=== PATIENT | female | born 1970 | race African-American/Black ===

== ENCOUNTER 2020-05-21 16:45 | Inpatient (IN) ==
[2020-05-21] MEDS ORDERED: SODIUM CHLORIDE 0.9% 1,000 ML IV STA (17:38)
[2020-05-21 18:09] LABS: Basophils # 0.1 10*3/uL (0.0-0.2); Basophils % 0.3 % (0.0-0.8); Eosinophils # 0.1 10*3/uL (0.0-0.87); Eosinophils % 0.5 % (0.00-10.9); Hematocrit 35.9 VOL% (35.7-47.0); Hemoglobin 11.2 GM/DL (12.0-16.0); Immature Granulocytes % 0.7 %; Immature Granulocytes Absolute 0.13 #; Lymphocytes # 1.7 10*3/uL (1.4-4.0); Lymphocytes % 9.6 % (21.3-54.2); Mean Corpuscular HGB Conc 31.2 GM/DL (32-36); Mean Corpuscular Volume 79.4 FL (87-102); Mean Platelet Volume 8.2 FL (9.6-12.0); Monocytes % 4.7 % (1.7-12.7); Neutrophils % 84.2 % (38.7-73.9); Platelet Count 545 T/CUMM (130-400); Red Blood Count 4.52 MC/CUMM (3.8-5.5); Red Cell Distribution Width 15.3 % (9.3-17.3); White Blood Count 17.7 T/CUMM (4-12)
[2020-05-21 18:37] LABS: Alanine Aminotransferase 19 U/L (13-56); Albumin 2.7 G/DL (3.4-5.0); Alkaline Phosphatase 92 U/L (45-117); Aspartate Amino Transferase 10 U/L (0-37); Bilirubin,Total < 0.39 MG/DL (0.2-1.0); Blood Urea Nitrogen 9 MG/DL (7-18); Calcium 9.3 MG/DL (8.5-10.1); Estimated Glom Filtration Rate 78 ML/MIN; Glucose 213 MG/DL (74-106); Osmolality,Calculated 272.2 MOS/KG (273-304); Total Protein 8.1 G/DL (6.4-8.3)
[2020-05-21] MEDS ORDERED: VANCOMYCIN INJ 1,000 MG in SODIUM CHLORIDE 0.9% 250 ML IV STA (19:16)
[2020-05-21] MEDS ORDERED: ACETAMINOPHEN 325 MG TABLET PO PRN (19:44)
[2020-05-21] MEDS ORDERED: ONDANSETRON 4 MG/2 ML VIAL IV PRN (19:44)
[2020-05-21] MEDS ORDERED: VANCOMYCIN 1,000 MG VIAL ONE (20:29)
[2020-05-21] MEDS: SODIUM CHLOR 0.9% KCL 40 MEQ 40 MEQ/1,000 ML BAG IV SCH (22:38)
[2020-05-21] MEDS: MORPHINE 4 MG/1 ML VIAL IV PRN (23:46)
[2020-05-22 06:06] LABS: Basophils % 0.3 % (0.0-0.8); Eosinophils # 0.2 10*3/uL (0.0-0.87); Eosinophils % 1.4 % (0.00-10.9); Hematocrit 30.3 VOL% (35.7-47.0); Immature Granulocytes % 0.6 %; Immature Granulocytes Absolute 0.07 #; Lymphocytes # 1.9 10*3/uL (1.4-4.0); Mean Corpuscular HGB Conc 31.7 GM/DL (32-36); Mean Corpuscular Volume 79.7 FL (87-102); Mean Platelet Volume 8.4 FL (9.6-12.0); Monocytes % 8.9 % (1.7-12.7); Neutrophils % 73.8 % (38.7-73.9); Platelet Count 441 T/CUMM (130-400); Red Cell Distribution Width 15.2 % (9.3-17.3)
[2020-05-22 06:10] LABS: Hemoglobin 9.6 GM/DL (12.0-16.0); White Blood Count 12.5 T/CUMM (4-12)
[2020-05-22 06:12] LABS: Calcium 8.3 MG/DL (8.5-10.1); Osmolality,Calculated 271.7 MOS/KG (273-304)
[2020-05-22] MEDS: MORPHINE 4 MG/1 ML VIAL IV PRN ×2 (07:13→18:03)
[2020-05-22] MEDS: DEXTROSE 5% NACL 0.45% 1,000 ML IV SCH (07:36)
[2020-05-22] MEDS: SODIUM CHLOR 0.9% KCL 40 MEQ 40 MEQ/1,000 ML BAG IV SCH ×2 (08:50→17:57)
[2020-05-22] MEDS: PANTOPRAZOLE 40 MG VIAL IV SCH (08:54)
[2020-05-22] MEDS: VANCOMYCIN INJ 1,000 MG in SODIUM CHLORIDE 0.9% 250 ML IV SCH ×2 (08:54→20:25)
[2020-05-22] MEDS ORDERED: CYCLOBENZAPRINE 10 MG TABLET PO PRN (10:51)
[2020-05-22] MEDS ORDERED: DEXTROSE 50% 25 GM/50 ML VIAL IV PRN (10:53)
[2020-05-22] MEDS ORDERED: GLUCAGON 1 MG VIAL IM PRN (10:53)
[2020-05-22] MEDS: INSULIN LISPRO 100 UNIT/ML SUBCUT SCH ×3 (12:10→20:10)
[2020-05-22] MEDS: CHLORHEXIDINE 4% SOLN 118 ML BOTTLE TOP SCH (12:11)
[2020-05-22] MEDS: traMADol 50 MG TABLET PO PRN ×2 (12:11→20:12)
[2020-05-22] MEDS: LOSARTAN 50 MG TABLET PO SCH (12:12)
[2020-05-22] MEDS: CHLORTHALIDONE 25 MG TABLET PO SCH (14:21)
[2020-05-22] MEDS: GABAPENTIN 100 MG CAPSULE PO SCH ×2 (14:21→20:14)
[2020-05-22] MEDS: GLIMEPIRIDE 4 MG TABLET PO SCH (17:21)
[2020-05-22] MEDS: METOPROLOL TARTRATE 25 MG TABLET PO SCH (20:14)
[2020-05-23] MEDS: SODIUM CHLOR 0.9% KCL 40 MEQ 40 MEQ/1,000 ML BAG IV SCH ×5 (01:24→23:36)
[2020-05-23] MEDS: LEVOTHYROXINE 150 MCG TABLET PO SCH (06:04)
[2020-05-23] MEDS: INSULIN LISPRO 100 UNIT/ML SUBCUT SCH ×4 (07:48→21:13)
[2020-05-23] MEDS: GLIMEPIRIDE 4 MG TABLET PO SCH ×2 (08:25→17:10)
[2020-05-23] MEDS: CHLORTHALIDONE 25 MG TABLET PO SCH (08:25)
[2020-05-23] MEDS: ROSUVASTATIN 10 MG TABLET PO SCH (08:25)
[2020-05-23] MEDS: LOSARTAN 50 MG TABLET PO SCH (08:26)
[2020-05-23] MEDS: PANTOPRAZOLE 40 MG VIAL IV SCH (08:26)
[2020-05-23] MEDS: GABAPENTIN 100 MG CAPSULE PO SCH ×3 (08:26→20:59)
[2020-05-23] MEDS: DULoxetine 30 MG CAPSULE PO SCH (08:26)
[2020-05-23] MEDS: METOPROLOL TARTRATE 25 MG TABLET PO SCH ×2 (08:26→20:59)
[2020-05-23] MEDS: POTASSIUM CHLORIDE 20 MEQ TABLET PO SCH (08:26)
[2020-05-23] MEDS: CHLORHEXIDINE 4% SOLN 118 ML BOTTLE TOP SCH (08:27)
[2020-05-23] MEDS: VANCOMYCIN INJ 1,000 MG in SODIUM CHLORIDE 0.9% 250 ML IV SCH ×2 (08:27→21:06)
[2020-05-23] MEDS: traMADol 50 MG TABLET PO PRN ×2 (08:55→21:11)
[2020-05-23] MEDS: MENTHOL/ZINC OXIDE OINT 71 GM JAR TOP SCH (20:58)
[2020-05-24] MEDS: SODIUM CHLOR 0.9% KCL 40 MEQ 40 MEQ/1,000 ML BAG IV SCH ×2 (01:04→10:24)
[2020-05-24] MEDS: MORPHINE 4 MG/1 ML VIAL IV PRN ×2 (01:53→22:54)
[2020-05-24] MEDS: traMADol 50 MG TABLET PO PRN ×2 (03:30→18:00)
[2020-05-24] MEDS: LEVOTHYROXINE 150 MCG TABLET PO SCH (06:09)
[2020-05-24] MEDS: INSULIN LISPRO 100 UNIT/ML SUBCUT SCH ×4 (07:19→21:15)
[2020-05-24] MEDS: VANCOMYCIN INJ 1,000 MG in SODIUM CHLORIDE 0.9% 250 ML IV SCH ×2 (08:31→20:32)
[2020-05-24] MEDS: ROSUVASTATIN 10 MG TABLET PO SCH (08:32)
[2020-05-24] MEDS: GLIMEPIRIDE 4 MG TABLET PO SCH ×2 (08:32→17:51)
[2020-05-24] MEDS: LOSARTAN 50 MG TABLET PO SCH (08:32)
[2020-05-24] MEDS: GABAPENTIN 100 MG CAPSULE PO SCH ×3 (08:32→20:32)
[2020-05-24] MEDS: CHLORTHALIDONE 25 MG TABLET PO SCH (08:32)
[2020-05-24] MEDS: POTASSIUM CHLORIDE 20 MEQ TABLET PO SCH (08:32)
[2020-05-24] MEDS: METOPROLOL TARTRATE 25 MG TABLET PO SCH ×2 (08:32→20:33)
[2020-05-24] MEDS: DULoxetine 30 MG CAPSULE PO SCH (08:33)
[2020-05-24] MEDS: MENTHOL/ZINC OXIDE OINT 71 GM JAR TOP SCH ×2 (08:33→20:59)
[2020-05-24] MEDS: PANTOPRAZOLE 40 MG VIAL IV SCH (08:33)
[2020-05-24] MEDS: CHLORHEXIDINE 4% SOLN 118 ML BOTTLE TOP SCH (08:34)
[2020-05-24] MEDS ORDERED: MIDAZOLAM 2 MG/2 ML VIAL ONE (14:50)
[2020-05-24] MEDS ORDERED: fentaNYL 100 MCG/2 ML VIAL ONE (14:50)
[2020-05-24] MEDS ORDERED: LIDOCAINE 2% 5 ML VIAL ONE (14:50)
[2020-05-24] MEDS ORDERED: PHENYLEPHRINE 1 MG/10 ML SYRINGE IV ONE ×2 (14:50→16:18)
[2020-05-24] MEDS ORDERED: propofoL 200 MG/20 ML VIAL IV ONE (14:50)
[2020-05-24] MEDS ORDERED: BUPIVACAINE MPF 0.25% 30 ML VIAL ONE (14:58)
[2020-05-24] MEDS ORDERED: LIDOCAINE 1% 20 ML VIAL ONE (14:59)
[2020-05-24] MEDS ORDERED: ACETAMINOPHEN 1,000 MG/100 ML VIAL IV ONE (15:36)
[2020-05-24] MEDS ORDERED: HYDROmorphone 2 MG/1 ML VIAL ONE (16:47)
[2020-05-24] MEDS ORDERED: ONDANSETRON 4 MG/2 ML VIAL IV PRN (16:47)
[2020-05-24] MEDS ORDERED: HYDROmorphone 2 MG/1 ML VIAL IV PRN (16:47)
[2020-05-24] MEDS: ENOXAPARIN 40 MG/0.4 ML SYRINGE SUBCUT SCH (17:52)
[2020-05-25] MEDS: SODIUM CHLOR 0.9% KCL 40 MEQ 40 MEQ/1,000 ML BAG IV SCH ×2 (00:22→08:56)
[2020-05-25] MEDS: LEVOTHYROXINE 150 MCG TABLET PO SCH (06:31)
[2020-05-25] MEDS: MORPHINE 4 MG/1 ML VIAL IV PRN ×2 (07:44→17:51)
[2020-05-25] MEDS: INSULIN LISPRO 100 UNIT/ML SUBCUT SCH ×4 (08:24→23:15)
[2020-05-25] MEDS: VANCOMYCIN INJ 1,000 MG in SODIUM CHLORIDE 0.9% 250 ML IV SCH ×2 (08:57→20:51)
[2020-05-25] MEDS: DULoxetine 30 MG CAPSULE PO SCH (08:58)
[2020-05-25] MEDS: ENOXAPARIN 40 MG/0.4 ML SYRINGE SUBCUT SCH (08:58)
[2020-05-25] MEDS: GABAPENTIN 100 MG CAPSULE PO SCH ×3 (08:58→20:50)
[2020-05-25] MEDS: PANTOPRAZOLE 40 MG VIAL IV SCH (08:58)
[2020-05-25] MEDS: POTASSIUM CHLORIDE 20 MEQ TABLET PO SCH (08:59)
[2020-05-25] MEDS: ROSUVASTATIN 10 MG TABLET PO SCH (08:59)
[2020-05-25] MEDS: METOPROLOL TARTRATE 25 MG TABLET PO SCH ×2 (08:59→20:51)
[2020-05-25] MEDS: CHLORTHALIDONE 25 MG TABLET PO SCH (08:59)
[2020-05-25] MEDS: GLIMEPIRIDE 4 MG TABLET PO SCH ×2 (08:59→17:51)
[2020-05-25] MEDS: LOSARTAN 50 MG TABLET PO SCH (08:59)
[2020-05-25] MEDS: CHLORHEXIDINE 4% SOLN 118 ML BOTTLE TOP SCH (09:00)
[2020-05-25] MEDS: MENTHOL/ZINC OXIDE OINT 71 GM JAR TOP SCH ×2 (09:00→20:52)
[2020-05-25] MEDS: traMADol 50 MG TABLET PO PRN ×2 (11:52→22:47)
[2020-05-26] MEDS: SODIUM CHLOR 0.9% KCL 40 MEQ 40 MEQ/1,000 ML BAG IV SCH ×2 (02:34→12:21)
[2020-05-26] MEDS: LEVOTHYROXINE 150 MCG TABLET PO SCH (06:25)
[2020-05-26] MEDS: LOSARTAN 50 MG TABLET PO SCH (08:22)
[2020-05-26] MEDS: DULoxetine 30 MG CAPSULE PO SCH (08:22)
[2020-05-26] MEDS: ROSUVASTATIN 10 MG TABLET PO SCH (08:22)
[2020-05-26] MEDS: METOPROLOL TARTRATE 25 MG TABLET PO SCH ×2 (08:23→20:03)
[2020-05-26] MEDS: GLIMEPIRIDE 4 MG TABLET PO SCH ×2 (08:23→16:33)
[2020-05-26] MEDS: POTASSIUM CHLORIDE 20 MEQ TABLET PO SCH (08:23)
[2020-05-26] MEDS: PANTOPRAZOLE 40 MG VIAL IV SCH (08:23)
[2020-05-26] MEDS: CHLORTHALIDONE 25 MG TABLET PO SCH (08:23)
[2020-05-26] MEDS: GABAPENTIN 100 MG CAPSULE PO SCH ×3 (08:23→20:03)
[2020-05-26] MEDS: ENOXAPARIN 40 MG/0.4 ML SYRINGE SUBCUT SCH (08:24)
[2020-05-26] MEDS: INSULIN LISPRO 100 UNIT/ML SUBCUT SCH ×4 (08:24→20:50)
[2020-05-26] MEDS: MORPHINE 4 MG/1 ML VIAL IV PRN ×3 (08:40→23:17)
[2020-05-26] MEDS: PIPERACILLIN/TAZOBACTAM 3,375 MG in SODIUM CHLORIDE 0.9% 100 ML IV SCH ×3 (10:11→23:40)
[2020-05-26] MEDS: MENTHOL/ZINC OXIDE OINT 71 GM JAR TOP SCH ×2 (10:11→20:04)
[2020-05-26] MEDS: CHLORHEXIDINE 4% SOLN 118 ML BOTTLE TOP SCH (10:11)
[2020-05-26] MEDS: VANCOMYCIN INJ 1,500 MG in SODIUM CHLORIDE 0.9% 500 ML IV SCH ×2 (12:07→20:04)
[2020-05-26] MEDS: traMADol 50 MG TABLET PO PRN (18:09)
[2020-05-27] MEDS: LEVOTHYROXINE 150 MCG TABLET PO SCH (05:46)
[2020-05-27] MEDS: ENOXAPARIN 40 MG/0.4 ML SYRINGE SUBCUT SCH (09:26)
[2020-05-27] MEDS: ROSUVASTATIN 10 MG TABLET PO SCH (09:27)
[2020-05-27] MEDS: DULoxetine 30 MG CAPSULE PO SCH (09:27)
[2020-05-27] MEDS: GABAPENTIN 100 MG CAPSULE PO SCH (09:27)
[2020-05-27] MEDS: GLIMEPIRIDE 4 MG TABLET PO SCH (09:28)
[2020-05-27] MEDS: POTASSIUM CHLORIDE 20 MEQ TABLET PO SCH (09:28)
[2020-05-27] MEDS: CHLORHEXIDINE 4% SOLN 118 ML BOTTLE TOP SCH (09:29)
[2020-05-27] MEDS: CHLORTHALIDONE 25 MG TABLET PO SCH (09:29)
[2020-05-27] MEDS: METOPROLOL TARTRATE 25 MG TABLET PO SCH (09:30)
[2020-05-27] MEDS: VANCOMYCIN INJ 1,500 MG in SODIUM CHLORIDE 0.9% 500 ML IV SCH (09:30)
[2020-05-27] MEDS: PANTOPRAZOLE 40 MG VIAL IV SCH (09:32)
[2020-05-27] MEDS ORDERED: CIPROFLOXACIN 500 MG TABLET PO SCH (11:00)
[2020-05-27] MEDS: MENTHOL/ZINC OXIDE OINT 71 GM JAR TOP SCH (12:10)
[2020-05-27] MEDS: INSULIN LISPRO 100 UNIT/ML SUBCUT SCH ×2 (12:10→12:32)
[2020-05-27] MEDS: LOSARTAN 50 MG TABLET PO SCH (12:11)
[2020-05-27 12:23] VITALS: BP 114/65
[2020-05-27] MEDS: PIPERACILLIN/TAZOBACTAM 3,375 MG in SODIUM CHLORIDE 0.9% 100 ML IV SCH (12:32)
[2020-05-27] MEDS ORDERED: CLINDAMYCIN 300 MG CAPSULE PO SCH (14:00)
[2020-05-29] MEDS ORDERED: ERGOCALCIFEROL 50,000 UNIT CAPSULE PO SCH (09:00)
== END 2020-05-27 12:31 | disposition home or self-care (01) | DRG 580 ==
LOC: N.EDINP 16:45 → N.ED 16:45 → N.5E 22:47
PROVIDERS: ADMIT Surgery; ATTEND Surgery

== ENCOUNTER 2020-06-15 07:33 | Inpatient (IN) ==
[2020-06-14 15:33] LABS: Basophils # 0.1 10*3/uL (0.0-0.2); Basophils % 0.8 % (0.0-0.8); Eosinophils # 0.5 10*3/uL (0.0-0.87); Eosinophils % 3.7 % (0.00-10.9); Hematocrit 34.3 VOL% (35.7-47.0); Hemoglobin 10.5 GM/DL (12.0-16.0); Immature Granulocytes % 0.5 %; Immature Granulocytes Absolute 0.07 #; Lymphocytes # 2.2 10*3/uL (1.4-4.0); Lymphocytes % 17.4 % (21.3-54.2); Mean Corpuscular HGB Conc 30.6 GM/DL (32-36); Mean Corpuscular Volume 78.3 FL (87-102); Mean Platelet Volume 8.4 FL (9.6-12.0); Monocytes % 7.4 % (1.7-12.7); Neutrophils % 70.2 % (38.7-73.9); Platelet Count 551 T/CUMM (130-400); Red Blood Count 4.38 MC/CUMM (3.8-5.5); Red Cell Distribution Width 15.6 % (9.3-17.3); White Blood Count 12.8 T/CUMM (4-12)
[2020-06-14 15:51] LABS: Calcium 9.4 MG/DL (8.5-10.1); Osmolality,Calculated 277.4 MOS/KG (273-304)
[~2020-06-15 07:33] MED LIST: AMPICILLIN/SULBACTAM 3,000 MG in SODIUM CHLORIDE 0.9% 100 ML IV ONE; BUPIVACAINE MPF 0.25% 30 ML VIAL ONE; LIDOCAINE MPF 1% /EPI 30 ML VIAL ONE
[2020-06-15] MEDS ORDERED: LACTATED RINGERS 1,000 ML IV SCH (09:00)
[2020-06-15] MEDS ORDERED: fentaNYL 100 MCG/2 ML VIAL ONE (09:19)
[2020-06-15] MEDS ORDERED: propofoL 200 MG/20 ML VIAL IV ONE (09:19)
[2020-06-15] MEDS ORDERED: MIDAZOLAM 2 MG/2 ML VIAL ONE (09:19)
[2020-06-15] MEDS ORDERED: ONDANSETRON 4 MG/2 ML VIAL ONE (09:19)
[2020-06-15] MEDS ORDERED: LIDOCAINE 2% 5 ML VIAL ONE (09:19)
[2020-06-15] MEDS ORDERED: SEVOFLURANE 1 UNIT/15 MINUTE INH ONE (09:49)
[2020-06-15] MEDS ORDERED: PHENYLEPHRINE 1 MG/10 ML SYRINGE IV ONE (09:49)
[2020-06-15] MEDS ORDERED: MEPERIDINE 25 MG/1 ML VIAL IV PRN (10:09)
[2020-06-15] MEDS ORDERED: BISACODYL 5 MG TABLET PO PRN (10:09)
[2020-06-15] MEDS ORDERED: DEXTROSE 50% 25 GM/50 ML VIAL IV PRN (10:09)
[2020-06-15] MEDS ORDERED: ACETAMINOPHEN 325 MG TABLET PO PRN (10:09)
[2020-06-15] MEDS ORDERED: ALBUTEROL/IPRATROPIUM 3 ML NEB RESP TX PRN (10:09)
[2020-06-15] MEDS ORDERED: ONDANSETRON 4 MG/2 ML VIAL IV PRN ×2 (10:09)
[2020-06-15] MEDS ORDERED: GLUCAGON 1 MG VIAL IM PRN (10:09)
[2020-06-15] MEDS ORDERED: HYDROmorphone 2 MG/1 ML VIAL ONE (10:10)
[2020-06-15] MEDS: HYDROmorphone 2 MG/1 ML VIAL IV PRN ×5 (10:10→23:07)
[2020-06-15] MEDS ORDERED: CYCLOBENZAPRINE 10 MG TABLET PO PRN (10:15)
[2020-06-15] MEDS ORDERED: traMADol 50 MG TABLET PO PRN (10:15)
[2020-06-15] MEDS: INSULIN LISPRO 100 UNIT/ML SUBCUT SCH ×3 (13:03→21:31)
[2020-06-15] MEDS: LACTATED RINGERS 1,000 ML IV SCH ×2 (13:21→23:02)
[2020-06-15] MEDS: cefTRIAXone 1,000 MG in SYRINGE 1 EACH IV SCH (14:08)
[2020-06-15] MEDS: GLIMEPIRIDE 4 MG TABLET PO SCH (16:41)
[2020-06-15] MEDS: VANCOMYCIN INJ 1,250 MG in SODIUM CHLORIDE 0.9% 250 ML IV SCH (16:49)
[2020-06-15] MEDS: METOPROLOL TARTRATE 25 MG TABLET PO SCH (21:26)
[2020-06-16] MEDS: VANCOMYCIN INJ 1,250 MG in SODIUM CHLORIDE 0.9% 250 ML IV SCH ×2 (04:55→16:03)
[2020-06-16] MEDS: HYDROmorphone 2 MG/1 ML VIAL IV PRN ×4 (04:57→17:39)
[2020-06-16] MEDS: LEVOTHYROXINE 150 MCG TABLET PO SCH (05:50)
[2020-06-16 06:44] LABS: Basophils % 0.3 % (0.0-0.8); Eosinophils # 0.5 10*3/uL (0.0-0.87); Eosinophils % 4.4 % (0.00-10.9); Hematocrit 32.4 VOL% (35.7-47.0); Hemoglobin 10.1 GM/DL (12.0-16.0); Immature Granulocytes % 0.5 %; Immature Granulocytes Absolute 0.05 #; Lymphocytes # 1.4 10*3/uL (1.4-4.0); Lymphocytes % 13.1 % (21.3-54.2); Mean Corpuscular HGB Conc 31.2 GM/DL (32-36); Mean Corpuscular Volume 78.8 FL (87-102); Mean Platelet Volume 8.3 FL (9.6-12.0); Monocytes % 5.4 % (1.7-12.7); Neutrophils % 76.3 % (38.7-73.9); Platelet Count 435 T/CUMM (130-400); Red Blood Count 4.11 MC/CUMM (3.8-5.5); Red Cell Distribution Width 15.5 % (9.3-17.3); White Blood Count 10.3 T/CUMM (4-12)
[2020-06-16 06:57] LABS: Calcium 8.7 MG/DL (8.5-10.1); Osmolality,Calculated 272.7 MOS/KG (273-304)
[2020-06-16] MEDS: INSULIN LISPRO 100 UNIT/ML SUBCUT SCH ×4 (07:36→21:51)
[2020-06-16] MEDS ORDERED: PANTOPRAZOLE 40 MG TABLET PO SCH (09:00)
[2020-06-16] MEDS: ROSUVASTATIN 10 MG TABLET PO SCH (09:01)
[2020-06-16] MEDS: GABAPENTIN 100 MG CAPSULE PO SCH (09:01)
[2020-06-16] MEDS: DULoxetine 30 MG CAPSULE PO SCH (09:01)
[2020-06-16] MEDS: CHLORTHALIDONE 25 MG TABLET PO SCH (09:01)
[2020-06-16] MEDS: LOSARTAN 50 MG TABLET PO SCH (09:01)
[2020-06-16] MEDS: cefTRIAXone 1,000 MG in SYRINGE 1 EACH IV SCH (09:02)
[2020-06-16] MEDS: ENOXAPARIN 40 MG/0.4 ML SYRINGE SUBCUT SCH (09:02)
[2020-06-16] MEDS: LACTATED RINGERS 1,000 ML IV SCH ×3 (09:02→23:32)
[2020-06-16] MEDS: METOPROLOL TARTRATE 25 MG TABLET PO SCH ×2 (09:02→21:51)
[2020-06-16] MEDS: GLIMEPIRIDE 4 MG TABLET PO SCH ×2 (09:02→16:03)
[2020-06-16] MEDS: JARDIANCE PO SCH (09:03)
[2020-06-16] MEDS ORDERED: SODIUM HYPOCHLORITE 0.25% IRRIG 473 ML BOTTLE ONE (09:53)
[2020-06-16] MEDS: SODIUM HYPOCHLORITE 0.25% IRRIG 473 ML BOTTLE TOP SCH (10:18)
[2020-06-16] MEDS: POTASSIUM CHLORIDE 20 MEQ TABLET PO PRN ×2 (21:51→23:32)
[2020-06-17] MEDS: VANCOMYCIN INJ 1,250 MG in SODIUM CHLORIDE 0.9% 250 ML IV SCH ×2 (02:09→15:29)
[2020-06-17] MEDS: POTASSIUM CHLORIDE 20 MEQ TABLET PO PRN (02:09)
[2020-06-17] MEDS: HYDROmorphone 2 MG/1 ML VIAL IV PRN ×4 (02:16→23:37)
[2020-06-17] MEDS: LEVOTHYROXINE 150 MCG TABLET PO SCH (06:21)
[2020-06-17] MEDS: LACTATED RINGERS 1,000 ML IV SCH ×2 (09:25→15:31)
[2020-06-17] MEDS: INSULIN LISPRO 100 UNIT/ML SUBCUT SCH ×4 (09:27→21:19)
[2020-06-17] MEDS: JARDIANCE PO SCH (09:27)
[2020-06-17] MEDS: ENOXAPARIN 40 MG/0.4 ML SYRINGE SUBCUT SCH (09:34)
[2020-06-17] MEDS: GLIMEPIRIDE 4 MG TABLET PO SCH ×2 (09:34→17:37)
[2020-06-17] MEDS: ROSUVASTATIN 10 MG TABLET PO SCH (09:34)
[2020-06-17] MEDS: DULoxetine 30 MG CAPSULE PO SCH (09:34)
[2020-06-17] MEDS: cefTRIAXone 1,000 MG in SYRINGE 1 EACH IV SCH (09:34)
[2020-06-17] MEDS: CHLORTHALIDONE 25 MG TABLET PO SCH (09:35)
[2020-06-17] MEDS: SODIUM HYPOCHLORITE 0.25% IRRIG 473 ML BOTTLE TOP SCH (09:35)
[2020-06-17] MEDS: LOSARTAN 50 MG TABLET PO SCH (09:35)
[2020-06-17] MEDS: GABAPENTIN 100 MG CAPSULE PO SCH (09:35)
[2020-06-17] MEDS: METOPROLOL TARTRATE 25 MG TABLET PO SCH ×2 (09:35→21:09)
[2020-06-18] MEDS: LACTATED RINGERS 1,000 ML IV SCH ×3 (01:45→18:05)
[2020-06-18] MEDS: LEVOTHYROXINE 150 MCG TABLET PO SCH (05:39)
[2020-06-18 06:41] LABS: Basophils # 0.1 10*3/uL (0.0-0.2); Basophils % 0.9 % (0.0-0.8); Eosinophils # 0.6 10*3/uL (0.0-0.87); Hematocrit 31.3 VOL% (35.7-47.0); Hemoglobin 9.4 GM/DL (12.0-16.0); Immature Granulocytes % 0.5 %; Immature Granulocytes Absolute 0.04 #; Lymphocytes % 25.1 % (21.3-54.2); Mean Corpuscular Volume 79.8 FL (87-102); Mean Platelet Volume 8.6 FL (9.6-12.0); Monocytes % 8.7 % (1.7-12.7); Neutrophils % 56.8 % (38.7-73.9); Platelet Count 482 T/CUMM (130-400); Red Blood Count 3.92 MC/CUMM (3.8-5.5); Red Cell Distribution Width 15.7 % (9.3-17.3); White Blood Count 7.9 T/CUMM (4-12)
[2020-06-18 07:05] LABS: Calcium 9.1 MG/DL (8.5-10.1)
[2020-06-18 07:07] LABS: Osmolality,Calculated 272.4 MOS/KG (273-304)
[2020-06-18] MEDS: INSULIN LISPRO 100 UNIT/ML SUBCUT SCH ×4 (08:40→20:20)
[2020-06-18] MEDS: ROSUVASTATIN 10 MG TABLET PO SCH (08:41)
[2020-06-18] MEDS: LOSARTAN 50 MG TABLET PO SCH (08:41)
[2020-06-18] MEDS: GABAPENTIN 100 MG CAPSULE PO SCH (08:41)
[2020-06-18] MEDS: METOPROLOL TARTRATE 25 MG TABLET PO SCH ×2 (08:41→20:22)
[2020-06-18] MEDS: GLIMEPIRIDE 4 MG TABLET PO SCH ×2 (08:41→16:37)
[2020-06-18] MEDS: DULoxetine 30 MG CAPSULE PO SCH (08:41)
[2020-06-18] MEDS: cefTRIAXone 1,000 MG in SYRINGE 1 EACH IV SCH (08:41)
[2020-06-18] MEDS: CHLORTHALIDONE 25 MG TABLET PO SCH (08:41)
[2020-06-18] MEDS: JARDIANCE PO SCH (08:42)
[2020-06-18] MEDS: HYDROmorphone 2 MG/1 ML VIAL IV PRN ×3 (08:42→20:22)
[2020-06-18] MEDS: SODIUM HYPOCHLORITE 0.25% IRRIG 473 ML BOTTLE TOP SCH (08:42)
[2020-06-18] MEDS: VANCOMYCIN INJ 1,250 MG in SODIUM CHLORIDE 0.9% 250 ML IV SCH (08:42)
[2020-06-18] MEDS: ENOXAPARIN 40 MG/0.4 ML SYRINGE SUBCUT SCH (10:33)
[2020-06-19] MEDS: LACTATED RINGERS 1,000 ML IV SCH ×3 (01:40→11:40)
[2020-06-19] MEDS: VANCOMYCIN INJ 1,250 MG in SODIUM CHLORIDE 0.9% 250 ML IV SCH (02:58)
[2020-06-19] MEDS: HYDROmorphone 2 MG/1 ML VIAL IV PRN ×2 (04:04→11:37)
[2020-06-19] MEDS: LEVOTHYROXINE 150 MCG TABLET PO SCH (05:39)
[2020-06-19 06:49] LABS: Basophils # 0.1 10*3/uL (0.0-0.2); Basophils % 0.9 % (0.0-0.8); Eosinophils # 0.7 10*3/uL (0.0-0.87); Eosinophils % 7.7 % (0.00-10.9); Hematocrit 32.6 VOL% (35.7-47.0); Hemoglobin 9.8 GM/DL (12.0-16.0); Immature Granulocytes % 0.7 %; Immature Granulocytes Absolute 0.06 #; Lymphocytes # 1.7 10*3/uL (1.4-4.0); Lymphocytes % 19.7 % (21.3-54.2); Mean Corpuscular HGB Conc 30.1 GM/DL (32-36); Mean Corpuscular Volume 79.9 FL (87-102); Mean Platelet Volume 8.3 FL (9.6-12.0); Monocytes % 6.9 % (1.7-12.7); Neutrophils % 64.1 % (38.7-73.9); Platelet Count 480 T/CUMM (130-400); Red Blood Count 4.08 MC/CUMM (3.8-5.5); Red Cell Distribution Width 15.8 % (9.3-17.3); White Blood Count 8.7 T/CUMM (4-12)
[2020-06-19 07:10] LABS: Calcium 9.4 MG/DL (8.5-10.1); Osmolality,Calculated 272.5 MOS/KG (273-304)
[2020-06-19] MEDS: GABAPENTIN 100 MG CAPSULE PO SCH (08:52)
[2020-06-19] MEDS: CHLORTHALIDONE 25 MG TABLET PO SCH (08:52)
[2020-06-19] MEDS: ROSUVASTATIN 10 MG TABLET PO SCH (08:52)
[2020-06-19] MEDS: METOPROLOL TARTRATE 25 MG TABLET PO SCH (08:53)
[2020-06-19] MEDS: LOSARTAN 50 MG TABLET PO SCH (08:53)
[2020-06-19] MEDS: DULoxetine 30 MG CAPSULE PO SCH (08:53)
[2020-06-19] MEDS: INSULIN LISPRO 100 UNIT/ML SUBCUT SCH ×2 (08:54→11:39)
[2020-06-19] MEDS: SODIUM HYPOCHLORITE 0.25% IRRIG 473 ML BOTTLE TOP SCH (08:54)
[2020-06-19] MEDS: cefTRIAXone 1,000 MG in SYRINGE 1 EACH IV SCH (08:54)
[2020-06-19] MEDS: ENOXAPARIN 40 MG/0.4 ML SYRINGE SUBCUT SCH (08:56)
[2020-06-19] MEDS ORDERED: GLIMEPIRIDE 2 MG TABLET PO SCH (09:00)
[2020-06-19] MEDS: JARDIANCE PO SCH (10:49)
[2020-06-19] MEDS: GLIMEPIRIDE 4 MG TABLET PO SCH (10:50)
[2020-06-19 12:57] VITALS: BP 147/90
== END 2020-06-19 15:00 | disposition home or self-care (01) | DRG 581 ==
LOC: N.OR 07:33 → N.SDSINP 08:17 → N.5E 12:07
PROVIDERS: ADMIT Physician Assistant; ATTEND Surgery